=== PATIENT | male | born 1990 | race Caucasian/White ===

== ENCOUNTER 2021-07-21 22:09 | Emergency (ER) | payer MEDICAID, SELFPAY ==
--- NOTE | ~2021-07-21 | XR_ITS ---
EXAMINATION: XR SHOULDER, RIGHT CLINICAL INFORMATION: Right shoulder pain COMPARISON: None TECHNIQUE: AP external rotation, Grashey, scapular Y, and axillary views of the right shoulder. FINDINGS: The bones and soft tissues are normal. No fracture. Glenohumeral and acromioclavicular alignment is anatomic with normal joint space. No abnormal soft tissue calcifications. XR/XR shoulder RT min 2V IMPRESSION: Normal right shoulder.
[2021-07-21 22:45] VITALS: BP 143/72; PULSE 66; RESP 18; TEMP 36.8; O2SAT 95; BMI 26.4
--- NOTE | 2021-07-22 00:19 | ED.EXTPRO ---
HPI - Extremity Problem General Chief complaint: Extremity Injury, Upper Stated complaint: right shoulder pain Time Seen by Provider: 07/22/21 00:06 Source: patient Mode of arrival: ambulatory Limitations: no limitations History of Present Illness HPI Narrative: Patient comes emergency room complaining of chronic right shoulder pain. Patient states that approximately 1 year ago, who was playing softball, he heard a loud pop. Since then, every time that he plays softball, is able to throw a few patches but soon after he starts having a pension pain in his right shoulder. She states that sometimes he has the same issue in his right elbow. For the last 3 days, patient has been complaining of pain in the shoulder, which started after playing softball. Patient denies any numbness or tingling in the arms, neck pain Related Data Previous Rx's Medication Instructions Recorded ibuprofen 600 mg tablet 600 mg PO TID PRN pain #20 tabs 07/22/21 Allergies Allergy/AdvReac Type Severity Reaction Status Date / Time No Known Allergies Allergy Verified 07/21/21 22:44 [No Known Allergies*] Review of Systems Review of Systems: Constitutional : No Weight loss, No Fever, No Chills, No Night Sweats, No Fatigue, No Malaise ENT/Mouth : No Hearing loss, No Ear Pain, No Nasal Congestion, No Sinus Pain, No Hoarseness, No sore throat, No Rhinorrhea, No Swallowing Difficulty Eyes: No Eye Pain, No Swelling, No Redness, No Foreign Body, No Discharge, No Vision Changes Cardiovascular : No Chest Pain, No SOB, No Dyspnea on Exertion, No Orthopnea, No Edema, No Palpitations Respiratory : No Cough, No Sputum, No Wheezing, No Smoke Exposure, No Dyspnea Gastrointestinal : No Nausea, No Vomiting, No Diarrhea, No Constipation, No abdominal Pain, No Hematochezia, No Melena Genitourinary : no irregular bleeding, No Dysuria, No Urinary Frequency, No Hematuria, No Urinary Incontinence, No Urgency, No Flank Pain, No Urinary Flow Changes, No Hesitancy Musculoskeletal : Complaining of right shoulder pinching sensation when pitching Skin : No Skin Lesions, No rash Neuro : No Weakness, No Numbness, No Paresthesias, No Loss of Consciousness, No Dizziness, No Headache Psych : No Anxiety/Panic, No Depression, No SI/HI/AH/VH, No Social Issues, Heme/Lymph: No Bruising, No Bleeding,No Lymphadenopathy Endocrine : No Polyuria, No Polydipsia, No Temperature Intolerance [facility] Social History Social History Advance Directives: No Physical Exam Vital Signs: Vital Signs: Last Vital Signs Temp 98.3 F 07/21/21 22:45 Pulse 66 07/21/21 22:45 Resp 18 07/21/21 22:45 BP 143/72 H 07/21/21 22:45 Pulse Ox 95 07/21/21 22:45 O2 Del Method 07/21/21 22:45 BMI result Body Mass Index 26.4 Const: Other: Appearance: Alert. Oriented X3. No acute distress. Eyes: Pupils equal, round and reactive to light. ENT: Pharynx normal. Neck: Normal inspection. Neck supple. No lymph nodes noted. No crepitus CVS: Normal heart rate and rhythm. Pulses normal. Normal S1 and S2 Respiratory: No respiratory distress. Breath sounds normal. No Wheezing. No rales Abdomen: Soft and nontender. No rigidity. No distention. Skin: Skin warm and dry. Normal skin color. Normal skin turgor. Extremities: No lower extremity edema. No Lacerations. No Rash patient is able to move his upper extremities with full range of motion Neuro: Oriented X 3. No motor deficit. No sensory deficit. Moving all extremities. No slurred speech. CN 2 through 12 grossly intact Psych: calm, cooperative, normal affect Course Course Course Narrative: I discussed with the patient that he likely has a rotator cuff injury, versus impingement syndrome, versus cuff tendinitis. Patient does not have a PCP, patient was provided with the phone number of Orthopedics. Patient instructed to take NSAIDs or Tylenol p.r.n. pain and ice his shoulder after games. Overall, he should be avoiding pitching MDM - Extremity (Nontraumatic) Imaging Data Right shoulder x-ray: My impression: No dislocation, no fracture, normal alignment Discharge Plan Discharge Clinical Impression: Right rotator cuff tendinitis Patient Disposition: Home, Self-Care Instructions: Rotator Cuff Tendinitis (ED) Additional Instructions: Please follow-up with your primary care physician tomorrow. If you have any worsening or new symptoms, please return to the emergency room or call 911 Prescriptions: New ibuprofen 600 mg tablet 600 mg PO TID PRN (Reason: pain) Qty: 20 0RF Referrals: Hoda Al PA-C [Physician Regional Economic Liaison] - 3 days (Rotator cuff tendinitis)
== END 2021-07-22 00:55 | disposition home or self-care (01) ==
PROVIDERS: Emergency Provider Emergency Medicine
DX: M75.91 Shoulder lesion, unspecified, right shoulder (principal)
CPT/HCPCS: 73030; 99282; 99283

== ENCOUNTER → 2021-08-24 09:27 | Outpatient (BNVA) | payer MEDICAID, SELFPAY | PROVIDERS: Visit Provider Physician Assistant | DX: M25.311 Other instability, right shoulder (principal) | CPT/HCPCS: 99202 ==

== ENCOUNTER 2022-07-12 10:49 | Emergency (ER) | payer MEDICAID, SELFPAY ==
--- NOTE | ~2022-07-12 | XR_ITS ---
EXAMINATION: XR WRIST, RIGHT XR HAND, RIGHT CLINICAL INFORMATION: Injury COMPARISON: Previous x-ray from 2014 TECHNIQUE: PA, lateral, and oblique views of the right wrist and PA, lateral, and oblique views of the right hand FINDINGS: Bone alignment is normal. No acute fracture or dislocation is seen. Old fracture of the base of the fourth metacarpal bone. There is question of nonacute trauma to the radial styloid versus chondrocalcinosis at the radiocarpal joint. This is new in the interval from 2013. No evidence of a fracture along the ulnar or dorsal side of the wrist as indicated by arrow. Joint spaces are otherwise normal. Prominent osteophyte versus osteochondroma along the radial side of the scaphoid bone. This is more prominent than seen on prior exam. Soft tissues are otherwise normal. XR/XR hand wrist RT IMPRESSION: No acute fracture or dislocation. Old healed fracture of the fourth metacarpal bone. Question old trauma to the radial styloid versus chondrocalcinosis in the radiocarpal joint. Increasing prominence of osteophyte versus osteochondroma along the radial side of the scaphoid bone.
[2022-07-12 11:16] VITALS: BP 108/60; PULSE 50; RESP 16; TEMP 36.2; O2SAT 99; BMI 25.2
--- NOTE | 2022-07-12 11:21 | ED.EXTPRO ---
HPI - Extremity Problem General Chief complaint: Extremity Injury, Upper Stated complaint: r hand inj Time Seen by Provider: 07/12/22 14:18 History of Present Illness HPI Narrative: Patient complains of right hand and wrist pain after playing baseball yesterday, he does not recall an acute injury but over the hours after the baseball game the hand became very painful in the ulnar side of the wrist to twist and bend, no numbness weakness or tingling, no other injury Related Data Previous Rx's Medication Instructions Recorded ibuprofen 600 mg tablet 600 mg PO TID PRN pain #20 tabs 07/22/21 Allergies Allergy/AdvReac Type Severity Reaction Status Date / Time No Known Allergies Allergy Verified 08/24/21 09:39 [No Known Allergies*] COUNT INCLUDES THE [facility] Past Medical History Source: nursing notes reviewed Social History Social History (Updated 08/24/21 @ 09:40 by ZEN Rankin) Advance Directives: No Advance Directives Information Provided: Yes Current occupational status: unemployed Current occupation: rt hand Physical Exam Vital Signs: Vital Signs: Last Vital Signs Temp 97.1 F 07/12/22 11:16 Pulse 50 07/12/22 11:16 Resp 16 07/12/22 11:16 BP 108/60 07/12/22 11:16 Pulse Ox 99 07/12/22 11:16 O2 Del Method Room Air 07/12/22 11:16 BMI result Body Mass Index 25.2 General appearance no acute distress Head is normocephalic atraumatic Neck is supple Respiratory no distress Extremities full range of motion x4 including right wrist Right wrist had tenderness over the dorsum of the wrist mostly mid wrist, there is full range of motion in the wrist but some discomfort with movement, it is relieved by holding still The right hand had mild dorsal tenderness just distal to the wrist again full range of motion in the hand all tendon function is normal there is no redness no warmth or swelling to wrist or hand Course Course Course Narrative: Patient complains of right hand and wrist injury after playing ball, x-ray ordered This is rme in triage, to be fully evaluated in the department X-ray was negative for acute fracture, patient had his own splint which immobilizes the wrist and relieves his discomfort and he is discharged to follow with orthopedics Discharge Plan Discharge Clinical Impression: Right wrist sprain Patient Disposition: Home, Self-Care Additional Instructions: X-ray showed evidence of an old fracture, but no new bony injury, no broken bone Use your splint as needed for comfort If not improved next week follow with orthopedist Return any time any concerns Prescriptions: No Action ibuprofen 600 mg tablet 600 mg PO TID PRN (Reason: pain) Qty: 20 0RF Referrals: Elaine Miller MD [Physician] - (Right hand sprain) Stand Alone Forms: Work/School Release Interventions: ED Discharge Assessment Last Done: 07/12/22 14:27 Discharge Date/Time: 07/12/22 14:28
== END 2022-07-12 14:28 | disposition home or self-care (01) ==
PROVIDERS: Emergency Provider Emergency Medicine
DX: S63.501A Unspecified sprain of right wrist, initial encounter (principal); X50.3XXA Overexertion from repetitive movements, initial encounter; Y93.64 Activity, baseball; Y92.320 Baseball field as the place of occurrence of the external cause; Y99.9 Unspecified external cause status
CPT/HCPCS: 73110; 73130; 99282; 99283

== ENCOUNTER 2025-01-10 13:18 | Emergency (ER) | payer OTHER, SELFPAY ==
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
[2025-01-10 13:22] VITALS: BP 129/74; PULSE 64; O2SAT 99
[2025-01-10 13:43] VITALS: BP 144/62; PULSE 63; RESP 18; TEMP 36.7; O2SAT 96; BMI 26.9
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
[2025-01-10 17:00] LABS: MANUAL DIFF FLAG NO
[2025-01-10 17:12] LABS: Hematocrit 43.9 % (42.0-52.0); Hemoglobin 14.7 g/dl (14.0-18.0); Imm Gran Abs Auto 0.02 X10*3/uL (0.00-0.03); Imm Gran Pct Auto 0.2 % (0.0-0.4); Lymphocytes Absolute Auto 3.0 X10*3/uL (1.2-4.9); Mean Corpuscular HGB Conc 33.5 g/dl (31.0-36.0); Mean Corpuscular Hemoglobin 28.3 pg (27.0-33.0); Mean Corpuscular Volume 84.6 fL (80.0-98.0); NRBC Abs Auto 0.000 X10*3/uL (0.0-0.012); NRBC Pct Auto 0.0 /100WBC (0.0-0.2); Platelet Count 283 X10*3/uL (160-400); Red Blood Count 5.19 X10*6/uL (4.60-5.80); White Blood Count 10.4 X10*3/uL (4.8-10.8)
[2025-01-10 17:14] LABS: Alanine Aminotransferase 20 U/L (0-40); Albumin Level 5.1 g/dL (3.5-5.0); Alkaline Phosphatase 73 U/L (39-117); Anion Gap 12 (12-20); Aspartate Amino Transferase 27 U/L (5-37); Blood Urea Nitrogen 17 mg/dL (9-16); Calcium 9.4 mg/dL (8.4-10.2); Carbon Dioxide 25 mmol/L (22-29); Chloride 107 mmol/L (96-108); Creatinine Clr Calc Pharmacy 107.7; Estimated Glomerular Filt Rate > 60; Potassium 4.6 mmol/L (3.3-5.1); Sodium 139 mmol/L (135-145); Total Protein 7.5 g/dL (6.5-8.0)
[2025-01-10 18:39] VITALS: BP 108/55; PULSE 59; RESP 18; TEMP 36.6; O2SAT 98
[2025-01-10] MEDS: iohexoL 350 MG/ML 100 ML INFUS..BTL IV (19:54)
[2025-01-10 21:55] VITALS: BP 108/55; PULSE 59; RESP 18; TEMP 36.6; O2SAT 98
--- OUTSIDE RECORDS SUMMARY | 2025-01-10 22:14 | XMS_ITS | Clinical Summary ---
Author Organization [facility] Address [address] [place] [phone] Phone Care Team Providers Care Bariatric Nurse Name Role Phone Fernando Archer MD Primary Care Provider Unavailabl e Immunizations Immunization Administration Dates Next Due DTP 05/07/1996, 4,05/07/1992,02/06,1991 Hep B, ped/adol 03/09/1995,08/06/1994,03/09/1994 Hib (PRP-T) 03/09/1993, 3,02/07/1992,12/07 IPV 05/07/1996, 4,02/07/1992,12/07 MMR 05/07/1993,10/07/1992 Meningococcal Conj (Menactra) MCV4P 11/25/2005 Td (adult) (MBL), 2 Lf tetan us toxoid, PF, adsorbed 11/22/2002 Tdap 07/13/2007 Unknown Vaccine 07/07/1993 Varicella 08/29/2008,03/28/1998 Social History Tobacco Use Types Packs/Day Years Used Date Smoking Tobacco: Never Assessed Sex and Gender Information Value Date Recorded Sex Assigned at Not on file Legal Sex Male 4:34 PM EDT Gender Identity Not on file Sexual Orientation Not on file Last Filed Vital Signs Vital Sign Reading Time Taken Comments Blood Pressure 110/80 06/04/2010 12:00 AM EDT Pulse 72 06/04/2010 12:00 AM EDT Temperature 36.8 C (98.3 F) 05/27/2009 12:00 AM EDT Respiratory Rate - - Oxygen Saturation - - Inhaled Oxygen Concentration - - Weight 64.4 kg (142 lb) 06/04/2010 12:00 AM EDT Height 157.5 cm (5' 2 ) 06/04/2010 12:00 AM EDT Body Mass Index 25.97 06/04/2010 12:00 AM EDT Plan of Treatment Health Maintenance Due Date Last Done Comments DTaP,Tdap,and Td Vaccines (7 - Td or Tdap) 07/12/2017 07/13/2007, 11/22/2002, 05/07/1996, Additional history exists HPV Vaccines (1 - 3-dose SCDM series) 09/19/2018 Influenza Vaccines (#1) 2024 COVID-19 Vaccine (2024- season) 2024 HIB Vaccines Completed 03/09/1993, 04/09, 02/07/1992, Additional history exists MMR Vaccines Completed 05/07/1993, 10/07/1992 Hepatitis B Vaccines Completed 03/09/1995, 08/06/1994, 03/09/1994 IPV Vaccines Completed 05/07/1996, 02/09, 02/07/1992, Additional history exists Meningococcal Vaccine Aged Out 11/25/2005 No oli frankie eligible based on patient's age to complete this topic Varicella Vaccines Completed 08/29/2008, 03/28/1998 Hepatitis A Vaccines Aged Out No long er eligible based on patient's age to complete this topic Men B Vaccine Aged Out No longer elig ible based on patient's age to complete this topic Pneumococcal Vaccine Aged Out No long er eligible based on patient's age to complete this topic Care Teams Bariatric Nurse Relationship Specialty Start Date End Date Fernando Archer MD PCP - General 09/17/16
--- OUTSIDE RECORDS SUMMARY | 2025-01-10 22:14 | XMS_ITS | Encounter Summary ---
Author Organization [facility] Address [address] [place], [place] [id number] Phone Care Team Providers Care Mental Retardation Nurse Name Role Phone Fernando Archer MD Primary Care Provider Unavailabl e Encounter Details Date Type Department Care Team (Late st Contact Info) Description 09/23/2016 Conversion Encounter [facility] - [address] [id number] Social History Tobacco Use Types Packs/Day Years Used Date Smoking Tobacco: Never Assessed Sex and Gender Information Value Date Recorded Sex Assigned at Not on file Legal Sex Male 4:34 PM EDT Gender Identity Not on file Sexual Orientation Not on file documented as of this encounter Plan of Treatment Not on file documented as of this encounter Visit Diagnoses Not on filedocumented in this encounter Care Teams Mental Retardation Nurse Relationship Specialty Start Date End Date Fernando Archer MD PCP - General 09/17/16 documented as of this encounter
== END 2025-01-10 21:55 | disposition home or self-care (01) ==
PROVIDERS: Emergency Provider Emergency Medicine
DX: S20.219A Contusion of unspecified front wall of thorax, initial encounter (principal); V43.02XA Car driver injured in collision with other type car in nontraffic accident, initial encounter; Y93.9 Activity, unspecified; Y92.9 Unspecified place or not applicable; Y99.0 Civilian activity done for income or pay; R07.9 Chest pain, unspecified; R10.9 Unspecified abdominal pain
CPT/HCPCS: 36415; 71046; 71260; 72100; 74177; 80053; 85025; 99283; 99285; Q9967

== ENCOUNTER → 2025-01-10 13:48 | Outpatient (BNV) | payer MEDICAID, SELFPAY | PROVIDERS: Visit Provider Radiology Diagnostic Radiology | DX: Z04.3 Encounter for examination and observation following other accident (principal); R07.9 Chest pain, unspecified; M51.370 Other intervertebral disc degeneration, lumbosacral region with discogenic back pain only; R91.8 Other nonspecific abnormal finding of lung field; V89.2XXA Person injured in unspecified motor-vehicle accident, traffic, initial encounter | CPT/HCPCS: 71046; 71260; 72100; 74177 ==